=== PATIENT | male | born 1975 | race Asian ===

== ENCOUNTER 2016-10-12 17:09 | Emergency (ER) | payer OTHER ==
[~2016-10-12] VITALS: Ht 167.6 cm; Wt 68.0 kg
--- NOTE | 2016-10-12 17:20 | NUR ---
PT BIBRA FROM HOME. PER REPORT, WITNESSED SEIZURE WHILE SMOKING. PT UNABLE TO RECALL WHAT HAPPEN. L SHOULDER ABRASION NOTED. PT IS AAO. NO HEAD AND ORAL TRAUMA NOTED. GOWNED AND PLACED ON MONITOR. 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 AWAITING MD SPARKS.
[2016-10-12] MEDS ORDERED: [UNRECOGNIZED DRUG - REMARK] (17:21)
--- NOTE | 2016-10-12 17:22 | NUR ---
DR WEBB AT BEDSIDE FOR EVAL.
--- NOTE | 2016-10-12 17:29 | NUR ---
IV LINE STARTED. BLOOD DRAWN AND SENT TO LAB.
[2016-10-12] MEDS ORDERED: IV NS 0.9% 1,000 ML BAG IV ONE (17:30)
[2016-10-12] MEDS ORDERED: LORAZEPAM INJ 2 MG/ML VIAL IV ONE (17:30)
[2016-10-12 17:34] LABS: BASOPHILS # (AUTO) 0.1 /CMM (0.0-0.2); BASOPHILS % (AUTO) 0.9 % (0.0-2.0); EOSINOPHILS # (AUTO) 0.1 /CMM (0.0-0.7); EOSINOPHILS % (AUTO) 0.8 % (0.0-6.0); HEMATOCRIT 42 % (39-51); LYMPHOCYTES # (AUTO) 2.5 /CMM (0.8-4.8); LYMPHOCYTES % (AUTO) 37.9 % (20.0-44.0); MEAN CORPUSCULAR HEMOGLOBIN 36 PG (26.0-33.0); MEAN CORPUSCULAR HGB CONC 33 g/dl (31.0-36.0); MEAN CORPUSCULAR VOLUME 109 fL (80-96); MONOCYTES # (AUTO) 0.5 /CMM (0.1-1.30); MONOCYTES % (AUTO) 7.8 % (2.0-12.0); NEUTROPHILS # (AUTO) 3.4 /CMM (1.8-8.9); NEUTROPHILS % (AUTO) 52.6 % (43.0-81.0); PLATELET COUNT (AUTO) 225 /CMM (150-450); RDW COEFFICIENT OF VARIATION 12.5 (11.5-15.0); RED BLOOD CELL COUNT(AUTO) 3.89 MIL/uL (4.5-6.0); WHITE BLOOD COUNT (AUTO) 6.6 K/uL (4.3-11.0)
[2016-10-12] MEDS ORDERED: LORAZEPAM INJ 2 MG/ML VIAL ONE (17:34)
[2016-10-12 17:44] LABS: CALCIUM, SERUM 9.8 mg/dL (8.5-10.1); POTASSIUM 4.2 mmol/L (3.5-5.1)
[2016-10-12 17:49] LABS: ALBUMIN 4.5 g/dL (3.4-5.0); BILIRUBIN,DIRECT 0.1 mg/dL (0.0-0.2); BILIRUBIN,TOTAL 0.5 mg/dL (0.2-1.0); TOTAL PROTEIN, SERUM 7.5 g/dL (6.4-8.2)
[2016-10-12] MEDS ORDERED: CHLORDIAZEPOXIDE HCL 25 MG CAPSULE ONE (18:09)
[2016-10-12] MEDS ORDERED: CHLORDIAZEPOXIDE HCL 25 MG CAPSULE PO ONE (18:30)
--- NOTE | 2016-10-12 18:39 | NUR ---
PT WAS PROVIDED W/ A CHOICE TO STAY IN THE ED OR GO HOME AFTER TAKING LIBRIUM. PT STATES WILL GO HOME. FRIEND WILL TAKE PT HOME. Patient discharged to home in stable condition. Written and verbal after care instructions given. Patient verbalizes understanding of instruction.IV removed. Catheter intact and site benign. Pressure and 4x4 applied to site. No bleeding noted.
[2016-10-12 18:40] VITALS: BP 136/97
== END 2016-10-12 18:41 | disposition home or self-care (01) ==
LOC: ER 17:11
DX: F10.239 Alcohol dependence with withdrawal, unspecified (principal); R56.9 Unspecified convulsions; I10 Essential (primary) hypertension; F17.200 Nicotine dependence, unspecified, uncomplicated
CPT/HCPCS: 36415; 80048-TC; 80076-TC; 84443-TC; 85025-TC; A4606; J2060; J7030; Z7610